=== PATIENT | female | born 1945 | race Caucasian/White ===

== ENCOUNTER → 2023-05-31 16:12 | Outpatient (REF) | payer MEDICARE, OTHER, SELFPAY | LOC: PAVMRI 16:12 | PROVIDERS: ATTENDING PHYSICIAN Student in an Organized Health Care Education/Training Program; FAMILY PHYSICIAN Family Medicine | DX: M54.2 Cervicalgia (principal); M25.511 Pain in right shoulder | CPT/HCPCS: 72141; 73221 ==

== ENCOUNTER → 2023-07-13 09:39 | Outpatient (REF) | payer MEDICARE, OTHER, SELFPAY | LOC: WDC 09:39 | PROVIDERS: ATTENDING PHYSICIAN Family Medicine | DX: R92.2 Inconclusive mammogram (principal) | CPT/HCPCS: 76641 ==

== ENCOUNTER → 2024-04-20 09:48 | Outpatient (REF) | payer MEDICARE, OTHER, SELFPAY | LOC: HWWDC 09:48 | PROVIDERS: ATTENDING PHYSICIAN Family Medicine | DX: Z12.31 Encounter for screening mammogram for malignant neoplasm of breast (principal) | CPT/HCPCS: 77063; 77067 ==

== ENCOUNTER → 2024-05-03 08:49 | Outpatient (REF) | payer MEDICARE, OTHER, SELFPAY ==
[2024-05-03 10:28] LABS: % Basophils 0.6 % (0-2); % Eosinophils 1.9 % (0-6); % Immature Granulocytes 0.1 % (0-0.5); % Lymphocytes 41.4 % (20.5-51.1); % Monocytes 6.2 % (1.7-9.3); % Neutrophils 49.8 % (42.2-75.2); Absolute Eosinophils 0.1 10^3/uL (0-0.7); Absolute Lymphocytes 2.8 10^3/uL (1.2-3.4); Absolute Monocytes 0.4 10^3/uL (0.1-0.6); Absolute Neutrophils 3.4 10^3/uL (1.4-6.5); Hematocrit 40.4 % (37.0-47.0); Hemoglobin 13.4 g/dL (12.0-16.0); Mean Corp Hgb Conc. 33.2 g/dL (33.0-37.0); Mean Corpuscular Hgb 29.5 pg (27.0-31.0); Mean Platelet Volume 10.7 fL (7.4-10.4); Nucleated Red Blood Cells % 0 %; Platelet Count 200 10^3/uL (130-400); Red Blood Cell Count 4.54 10^6/uL (4.20-5.40); Red Cell Dist. Width 13.4 % (11.5-14.5); Reticulocyte Count 1.6 % (0.4-2.8); White Blood Cell Count 6.8 10^3/uL (4.8-10.8)
[2024-05-03 10:33] LABS: Urine Albumin Negative (Neg - Trace); Urine Bilirubin Negative (Negative); Urine Character Clear (Clear); Urine Color Yellow; Urine Glucose Negative (Negative); Urine Ketone Negative (Negative); Urine Leukocyte 1+ (Negative); Urine Nitrite Negative (Negative); Urine Occult Blood Negative (Negative); Urine Specific Gravity 1.015 (<1.030); Urine Urobilinogen Negative (Neg - 1+)
[2024-05-03 11:04] LABS: Erythrocyte Sed Rate 24 mm/hour (0-20)
[2024-05-03 11:09] LABS: C-Reactive Protein < 5.00 mg/L (0.0-10.00)
[2024-05-03 11:18] LABS: ALT (SGPT) 28 U/L (0-35); AST (SGOT) 32 U/L (14-36); Albumin 4.4 g/dl (3.5-5.0); Alkaline Phosphatase 66 U/L (38-126); Amylase 124 U/L (30-110); Blood Urea Nitrogen 24 mg/dl (7-17); Calcium 8.9 mg/dl (8.4-10.2); Carbon Dioxide 26 mmol/L (22-30); Chloride 102 mmol/L (98-107); Creatine Phosphokinase 80 U/L (30-135); GGTP 36 U/L (12-43); Glucose 130 mg/dl (70-99); Iron 116 ug/dl (37-170); Lipase 534 U/L (23-300); Magnesium 1.9 mg/dl (1.6-2.3); Potassium 4.5 mmol/L (3.5-5.1); Sodium 137 mmol/L (135-145); Total Bilirubin 0.9 mg/dl (0.2-1.3); Total Cholesterol 233 mg/dl (50-199); Total Protein 6.8 g/dl (6.3-8.2); Triglyceride 367 mg/dl (10-149); Very Low Density Lipoprotein 73 mg/dl (0-30); eGFR > 60.00
[2024-05-03 11:20] LABS: Urine Bacteria Few (Negative); Urine Red Blood Cell 0-2 /HPF (0-2); Urine Squamous Cell 16-20 /LPF (Few)
[2024-05-03 11:26] LABS: Free T4 0.85 ng/dl (0.78-2.19); Vitamin D, 25-OH*** 48.8 ng/mL (30-80)
[2024-05-03 11:30] LABS: HDL Cholesterol 52 mg/dl; LDL Cholesterol, Calculated 108 mg/dl; Percent Saturation 38 % (20-50); Total Iron Binding Capacity 302 ug/dl (265-497)
[2024-05-03 11:37] LABS: Microalbumin, Random Urine < 0.6 mg/dl (0.6-1.7)
[2024-05-03 11:40] LABS: TSH 1.01 uIU/ml (0.47-4.68)
[2024-05-03 11:44] LABS: Ferritin 81.4 ng/ml (11.1-264.0); Glycohemoglobin (HgbA1c) 6.9 % (4.0-5.6)
[2024-05-03 12:16] LABS: Folate > 20.0 ng/ml (2.76-20); Vitamin B12 849 pg/ml (239-931)
[2024-05-03 13:01] LABS: Uric Acid 5.7 mg/dl (2.5-6.2)
[2024-05-03 15:01] LABS: Rheumatoid Agglutinin Less Than 10 IU (<10 IU)
== END ==
LOC: HWLAB 08:49
PROVIDERS: ATTENDING PHYSICIAN Family Medicine
DX: E11.9 Type 2 diabetes mellitus without complications (principal); E78.5 Hyperlipidemia, unspecified; R94.5 Abnormal results of liver function studies; R74.8 Abnormal levels of other serum enzymes; E03.9 Hypothyroidism, unspecified; M10.9 Gout, unspecified; E60 Dietary zinc deficiency; E55.9 Vitamin D deficiency, unspecified; M12.9 Arthropathy, unspecified; D64.9 Anemia, unspecified; E53.8 Deficiency of other specified B group vitamins; E61.1 Iron deficiency; E83.42 Hypomagnesemia; N39.0 Urinary tract infection, site not specified
CPT/HCPCS: 36415; 80053; 80061; 81003; 81015; 82043; 82150; 82306; 82550; 82570; 82607; 82728; 82746; 82977; 83036; 83540; 83550; 83690; 83735; 84439; 84443; 84550; 84630; 85025; 85045; 85652; 86140; 86430; 87086

== ENCOUNTER → 2024-06-26 09:42 | Outpatient (REF) | payer MEDICARE, OTHER, SELFPAY ==
[2024-06-26 12:47] LABS: % Basophils 0.6 % (0-2); % Eosinophils 2.2 % (0-6); % Immature Granulocytes 0.1 % (0-0.5); % Lymphocytes 32.1 % (20.5-51.1); % Monocytes 7.5 % (1.7-9.3); % Neutrophils 57.5 % (42.2-75.2); Absolute Eosinophils 0.2 10^3/uL (0-0.7); Absolute Lymphocytes 2.2 10^3/uL (1.2-3.4); Absolute Monocytes 0.5 10^3/uL (0.1-0.6); Absolute Neutrophils 3.9 10^3/uL (1.4-6.5); Hematocrit 41.1 % (37.0-47.0); Hemoglobin 13.3 g/dL (12.0-16.0); Mean Corp Hgb Conc. 32.4 g/dL (33.0-37.0); Mean Corpuscular Hgb 29.5 pg (27.0-31.0); Mean Corpuscular Volume 91.1 fL (81.0-99.0); Mean Platelet Volume 10.2 fL (7.4-10.4); Nucleated Red Blood Cells % 0 %; Platelet Count 187 10^3/uL (130-400); Red Blood Cell Count 4.51 10^6/uL (4.20-5.40); Red Cell Dist. Width 13.2 % (11.5-14.5); Reticulocyte Count 1.8 % (0.4-2.8); White Blood Cell Count 6.7 10^3/uL (4.8-10.8)
[2024-06-26 12:55] LABS: ALT (SGPT) 27 U/L (0-35); AST (SGOT) 29 U/L (14-36); Albumin 3.9 g/dl (3.5-5.0); Alkaline Phosphatase 66 U/L (38-126); Amylase 94 U/L (30-110); Blood Urea Nitrogen 20 mg/dl (7-17); Calcium 9.3 mg/dl (8.4-10.2); Carbon Dioxide 27 mmol/L (22-30); Chloride 106 mmol/L (98-107); Creatine Phosphokinase 48 U/L (30-135); GGTP 31 U/L (12-43); Glucose 127 mg/dl (70-99); HDL Cholesterol 53 mg/dl; Iron 99 ug/dl (37-170); LDL Cholesterol, Calculated 109 mg/dl; Lipase 355 U/L (23-300); Potassium 4.4 mmol/L (3.5-5.1); Sodium 142 mmol/L (135-145); Total Bilirubin 0.7 mg/dl (0.2-1.3); Total Cholesterol 240 mg/dl (50-199); Total Protein 6.6 g/dl (6.3-8.2); Triglyceride 392 mg/dl (10-149); Very Low Density Lipoprotein 78 mg/dl (0-30); eGFR 57.66
[2024-06-26 13:06] LABS: Percent Saturation 33 % (20-50); Total Iron Binding Capacity 296 ug/dl (265-497)
[2024-06-26 13:16] LABS: C-Reactive Protein < 5.00 mg/L (0.0-10.00)
[2024-06-26 13:19] LABS: Urine Albumin Negative (Neg - Trace); Urine Bilirubin Negative (Negative); Urine Character Clear (Clear); Urine Color Yellow; Urine Glucose Negative (Negative); Urine Ketone Negative (Negative); Urine Leukocyte 2+ (Negative); Urine Nitrite Negative (Negative); Urine Occult Blood Negative (Negative); Urine Specific Gravity 1.015 (<1.030); Urine Urobilinogen Negative (Neg - 1+)
[2024-06-26 13:32] LABS: Free T4 0.99 ng/dl (0.78-2.19)
[2024-06-26 13:34] LABS: Urine Bacteria Few (Negative); Urine Red Blood Cell 0-2 /HPF (0-2)
[2024-06-26 13:39] LABS: Erythrocyte Sed Rate 18 mm/hour (0-20)
[2024-06-26 13:46] LABS: TSH 0.69 uIU/ml (0.47-4.68)
[2024-06-26 14:11] LABS: Vitamin D, 25-OH*** 46.1 ng/mL (30-80)
[2024-06-26 14:33] LABS: Microalbumin, Random Urine 0.8 mg/dl (0.6-1.7)
[2024-06-26 15:00] LABS: Folate > 20.0 ng/ml (2.76-20); Vitamin B12 857 pg/ml (239-931)
[2024-06-26 15:03] LABS: Glycohemoglobin (HgbA1c) 6.8 % (4.0-5.6)
[2024-06-27 15:02] LABS: Rheumatoid Agglutinin Less Than 10 IU (<10 IU)
[2024-06-28 16:19] LABS: Zinc 73.4 ug/dL (60.0-120.0)
== END ==
LOC: HWLAB 09:42
PROVIDERS: ATTENDING PHYSICIAN Family Medicine
DX: E11.9 Type 2 diabetes mellitus without complications (principal); E78.5 Hyperlipidemia, unspecified; R94.5 Abnormal results of liver function studies; R74.8 Abnormal levels of other serum enzymes; E03.9 Hypothyroidism, unspecified; M10.9 Gout, unspecified; E53.8 Deficiency of other specified B group vitamins; E61.1 Iron deficiency; E83.42 Hypomagnesemia; N39.0 Urinary tract infection, site not specified; D64.9 Anemia, unspecified; M12.9 Arthropathy, unspecified; E55.9 Vitamin D deficiency, unspecified
CPT/HCPCS: 36415; 80053; 80061; 81003; 81015; 82043; 82150; 82306; 82550; 82570; 82607; 82728; 82746; 82977; 83036; 83540; 83550; 83690; 83735; 84439; 84443; 84550; 84630; 85025; 85045; 85652; 86140; 86430; 87086

== ENCOUNTER 2024-06-29 17:03 | Emergency (ER) | payer MEDICARE, OTHER, SELFPAY ==
[2024-06-29 17:06] VITALS: BP 170/86
[2024-06-29 17:22] LABS: % Basophils 0.4 % (0-2); % Eosinophils 1.1 % (0-6); % Immature Granulocytes 0.1 % (0-0.5); % Lymphocytes 25.9 % (20.5-51.1); % Monocytes 7.6 % (1.7-9.3); % Neutrophils 64.9 % (42.2-75.2); Absolute Eosinophils 0.1 10^3/uL (0-0.7); Absolute Lymphocytes 2.1 10^3/uL (1.2-3.4); Absolute Monocytes 0.6 10^3/uL (0.1-0.6); Absolute Neutrophils 5.1 10^3/uL (1.4-6.5); Hemoglobin 13.1 g/dL (12.0-16.0); Mean Corp Hgb Conc. 33.6 g/dL (33.0-37.0); Mean Corpuscular Hgb 29.8 pg (27.0-31.0); Mean Corpuscular Volume 88.6 fL (81.0-99.0); Mean Platelet Volume 10.1 fL (7.4-10.4); Nucleated Red Blood Cells % 0 %; Platelet Count 184 10^3/uL (130-400); White Blood Cell Count 7.9 10^3/uL (4.8-10.8)
[2024-06-29 17:45] LABS: ALT (SGPT) 31 U/L (0-35); AST (SGOT) 33 U/L (14-36); Albumin 4.1 g/dl (3.5-5.0); Alkaline Phosphatase 76 U/L (38-126); Blood Urea Nitrogen 20 mg/dl (7-17); Calcium 10.2 mg/dl (8.4-10.2); Carbon Dioxide 25 mmol/L (22-30); Chloride 102 mmol/L (98-107); Glucose 227 mg/dl (70-99); Potassium 4.3 mmol/L (3.5-5.1); Sodium 137 mmol/L (135-145); Total Bilirubin 0.7 mg/dl (0.2-1.3); Total Protein 6.9 g/dl (6.3-8.2); eGFR 57.66
[2024-06-29 17:47] LABS: Troponin I < 0.012 ng/ml
[2024-06-29 20:05] VITALS: BP 176/72; BMI 26.5
[2024-06-29 23:00] VITALS: BP 188/83
[2024-06-29 23:00] LABS: Troponin I 0.016 ng/ml
--- NOTE | 2024-06-29 23:36 | ED.GENMED ---
History of Present Illness
General
Chief Complaint: Cardiac Symptoms
Source: patient
Exam Limitations: none
Time Seen by Provider: 06/29/24 20:02
Nursing documentation reviewed up to this point in time: agreed with
History of Present Illness
History of Present Illness:
Patient with history of hypertension hypercholesterolemia, presents to ED secondary to intermittent and jaw pain, which has become more frequent and longer duration. Last night, patient states that she experienced jaw pain after she had carried
load of laundry down stairs, but symptoms resolved shortly afterwards when she rested. This afternoon, patient was outdoors working on her backyard when he became tired and short of breath. She came inside and her shortness of breath improved
gradually. However, as she was sitting on the couch, she started to experience similar jaw pain, and when it lasted greater than 2 hours, patient came to ED for an evaluation. Patient has had ongoing symptoms especially with exertion for more than
5 years. Patient has been admitted in the past for similar complaint and has seen her neurodiagnostic technician for an outpatient workup, including stress echocardiogram. Patient denies chest pain or shortness of breath. Denies recent travel or surgery.
Denies leg pain or swelling. There is family history of heart disease, with multiple for members having had heart attack. At the time of evaluation ED, patient states that her symptoms have resolved completely.
Past History
Past History
ED Past Medical History: HTN and Hypercholesterolemia
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
Social History
Tobacco: Former smoker
Alcohol: Occasional
Drug: None
Personal:
Living: alone
Family History
Family History: Other
Review of Systems
Review of Systems
Allergies reviewed?: Yes
All Other Systems: ROS reviewed and negative except as documented in HPI and ROS
Constitutional: Reports no symptoms
EENT: Reports no symptoms
Respiratory: Reports no symptoms; Denies trouble breathing
Cardiac: Reports no symptoms; Denies chest pain or diaphoresis
ABD/GI: Reports no symptoms; Denies nausea or vomiting
Musculoskeletal: Reports other (Jaw pain)
Skin: Reports no symptoms
Neurological: Reports no symptoms
Phy Exam
Physical Exam
Physical Exam:
Physical Exam
General: no apparent distress, not acutely ill. afebrile
Head: nc/at. eomi
Neck: supple. no meningeal signs.
Heart: s1/s2 regular rate and rhythm, no murmur.
Lungs: no acute respiratory distress. clear bilaterally
Abdomen: normal bowel sounds. not tender.
Neuro: alert and oriented x 3. no focal neurological deficits
Skin: no rash
Psychiatric: well kept. interactive and cooperative
Extremities: no edema. no calf tenderness.
Course
Orders/Labs/Results
Orders:
Orders
06/29/24 17:09
Electrocardiogram (*1) Urgent
Reason for Study: Chest Pain
06/29/24 17:10
EKG- Treatment ONCE
06/29/24 17:13
Complete Blood Count/With Diff Urgent
Comprehensive Metabolic Panel Urgent
Troponin I Urgent
06/29/24 19:47
CXR2 [CR Chest - 2 Views ] Urgent
Comment:
Reason For Exam: chest and back pain
06/29/24 21:44
Electrocardiogram (*1) Urgent
Reason for Study: Chest Pain
EKG- Treatment ONCE
06/29/24 22:08
Troponin I Urgent
06/29/24 23:38
Acetaminophen [Tylenol] 650 mg PO NOW STA
06/29/24 23:39
Acetaminophen [Tylenol] 650 mg .ROUTE .STK-MED ONE
Abnormal Lab Results
06/29/24
17:13
BUN 20 H mg/dl
(7-17)
Glucose 227 H mg/dl
(70-99)
06/29/24 17:13
06/29/24 17:13
Vital Signs
Initial and Last Documented VS:
Initial Vital Signs
Temp Pulse Resp BP Pulse Ox
98.1 F 78 16 170/86 100
06/29/24 17:06 06/29/24 17:06 06/29/24 17:06 06/29/24 17:06 06/29/24 17:06
Last Documented Vital Signs
Temp Pulse Resp BP Pulse Ox
98.1 F 74 13 188/83 97
06/29/24 17:06 06/29/24 23:00 06/29/24 23:00 06/29/24 23:00 06/29/24 21:15
MDM/Problems Addressed
MDM/Problems Addressed:
History and exam concerning for potential anginal equivalent symptoms, in light of strong family history of heart disease. Initial troponin negative, but second troponin reveals mildly increased troponin, without any recurrent jaw pain. Discussed
with on-call neurodiagnostic technician, Dr. Del Castillo, who feels that mild elevation is statistically insignificant. And as patient has no symptoms, recommends patient to be discharged home with recommendation to rest and follow-up with cardiology as an outpatient
next week. Patient and daughter agree with treatment plan. Patient will return to ED with recurrent symptoms.
*Critical Care Note
Total Time (30-74mins, 75-104mins- exclusive of procedures): Not Applicable
ED Attending Note
-
Portions of this chart may have been created with voice recognition software.� Occasional wrong word or��sound alike� substitutions may have occurred due to the inherent limitations of voice recognition software.
Discharge Plan
Departure
Patient Disposition: Home (Routine Discharge)
Date of Disposition: 06/29/24
Time of Disposition: 23:36
Patient with high blood pressure during this ER visit?: Yes
Condition: Good
Discharge Problem:
Jaw pain
Instructions: Chest Pain CBC Follow Up
Prescriptions:
No Action
aspirin 325 MG tablet
325 mg PO DAILY
ezetimibe 10 MG tablet
10 mg PO DAILY
vitamin E (dl, acetate) 400 UNITS capsule
400 units PO DAILY
multivitamin with folic acid [Tab-A-Glory] 1 TABLET tablet
1 tab PO DAILY
simvastatin 20 MG tablet
20 mg PO QPM
lisinopril 20 MG tablet
20 mg PO DAILY
aspirin 81 MG tablet,delayed release (DR/EC)
81 mg PO HS
simvastatin 40 MG tablet
40 mg PO QPM
baclofen 10 MG tablet
10 mg PO DAILY
multivitamin with minerals [Hair,Skin and Nails] 1 EACH tablet
1 ea PO DAILY
B-complex with vitamin C 1 CAPLET tablet
1 cap PO DAILY
docosahexaenoic acid-epa 1 CAP capsule
1 cap PO DAILY
cholecalciferol (vitamin D3) 2,000 UNITS tablet
2,000 units PO DAILY
Melatonin 10 MG
10 mg PO HS
Referrals:
Sha Bower Jr., [Family Provider] -
Efren Ring MD [Active] -
Activity Restrictions/Additional Instructions:
As discussed, please follow-up with your neurodiagnostic technician for further evaluation and treatment. Please return to ED with worsening symptoms.
Interventions
Interventions:
*Risk Screen - Suicide Last Done: 06/29/24 17:09
*General Assessment Last Done: 06/29/24 20:05
*Neglect/Abuse Screening Last Done: 06/29/24 17:09
*ED- Fall Risk Assessment Last Done: 06/29/24 20:05
*ED COVID-19 Vaccine History Last Done: 06/29/24 20:05
*Nursing Disposition Last Done: 06/29/24 23:47
ED- Pulmonary Assessment Last Done: 06/29/24 20:07
ED- Cardiac Assessment Last Done: 06/29/24 20:07
Discharge Date and Time
Discharge Date/Time: 06/29/24 23:48
Print Language: DIVEHI
[2024-06-29] MEDS: TYLENOL 650 MG PO (23:39)
== END 2024-06-29 23:48 | disposition home or self-care (01) ==
LOC: EMR 17:03
PROVIDERS: Student in an Organized Health Care Education/Training Program; EMERGENCY PHYSICIAN Emergency Medicine; FAMILY PHYSICIAN Family Medicine
DX: R68.84 Jaw pain (principal); I10 Essential (primary) hypertension; E78.00 Pure hypercholesterolemia, unspecified; Z87.891 Personal history of nicotine dependence
CPT/HCPCS: 99285; 71046; 80053; 84484; 85025; 93005

== ENCOUNTER → 2024-07-13 13:20 | Outpatient (REF) | payer MEDICARE, OTHER, SELFPAY | LOC: HWRAD 13:20 | PROVIDERS: ATTENDING PHYSICIAN Family Medicine | DX: M47.894 Other spondylosis, thoracic region (principal) | CPT/HCPCS: 72072 ==

== ENCOUNTER → 2024-07-26 06:32 | Outpatient (REF) | payer MEDICARE, OTHER, SELFPAY | LOC: RCS 06:32 | PROVIDERS: ATTENDING PHYSICIAN Internal Medicine Cardiovascular Disease; FAMILY PHYSICIAN Family Medicine | DX: R68.84 Jaw pain (principal); I10 Essential (primary) hypertension; E78.5 Hyperlipidemia, unspecified; R07.89 Other chest pain | CPT/HCPCS: 78452; 93017; A9500; J2785 ==

== ENCOUNTER → 2024-09-20 06:49 | Outpatient (REF) | payer MEDICARE, OTHER, SELFPAY | LOC: PAVMRI 06:49 | PROVIDERS: ATTENDING PHYSICIAN Family Medicine | DX: M47.894 Other spondylosis, thoracic region (principal) | CPT/HCPCS: 72146 ==

== ENCOUNTER → 2025-03-21 09:00 | Outpatient (REF) | payer MEDICARE, OTHER, SELFPAY ==
[2025-03-21 11:53] LABS: ALT (SGPT) 32 U/L (0-35); AST (SGOT) 35 U/L (14-36); Albumin 4.2 g/dl (3.5-5.0); Alkaline Phosphatase 59 U/L (38-126); HDL Cholesterol 57 mg/dl; LDL Cholesterol, Calculated 95 mg/dl; Total Protein 6.9 g/dl (6.3-8.2); Very Low Density Lipoprotein 39 mg/dl (0-30)
== END ==
LOC: REG 09:00
PROVIDERS: ATTENDING PHYSICIAN Internal Medicine Cardiovascular Disease; FAMILY PHYSICIAN Family Medicine
DX: I10 Essential (primary) hypertension (principal); E78.5 Hyperlipidemia, unspecified; R68.84 Jaw pain
CPT/HCPCS: 36415; 80061; 80076